=== PATIENT | female | born 1955 | race Caucasian/White ===

== ENCOUNTER 2017-09-04 08:25 | Day surgery (SDC) | payer BC ==
[~2017-09-04 08:25] MED LIST: Lactated Ringers 1,000 ML IV SCH; Lidocaine 2% 5 ML SDV ONE; Midazolam 1 MG/ML 2 ML SDV ONE; Propofol 200 MG/20 ML SDV ONE; Sodium Chloride 0.9% 10 ML Syringe FLUSH PRN; Sodium Chloride 0.9% 2.5 ML Syringe FLUSH PRN; fentaNYL 100 MCG/2 ML SDV ONE
--- NOTE | 2017-09-04 09:09 | PCM.PREANE ---
Preanesthetic Assessment - Anesthesia/Transfusion/Family Hx Anesthesia History: Prior Anesthesia Without Reaction Family History of Anesthesia Reaction: No Transfusion History: No Prior Transfusion(s) Intubation History: Unknown - Review of Systems General: No Symptoms Pulmonary: No Symptoms Cardiovascular: No Symptoms Gastrointestinal: No Symptoms Neurological: No Symptoms Other: Reports: None - Physical Assessment O2 Sat by Pulse Oximetry: 96 Respiratory Rate: 16 Vital Signs: Last Vital Signs Temp 36.6 C 09/04/17 08:42 Pulse 64 09/04/17 08:42 Resp 16 09/04/17 08:42 BP 135/94 H 09/04/17 08:42 Pulse Ox 96 09/04/17 08:42 Height: 1.73 m Weight: 71.668 kg ASA Class: 1 Mental Status: Alert & Oriented x3 Airway Class: Mallampati = 3 Dentition: Reports: Normal Dentition Thyro-Mental Finger Breadths: 3 Mouth Opening Finger Breadths: 3 ROM/Head Extension: Full Lungs: Clear to Auscultation, Normal Respiratory Effort Cardiovascular: Regular Rate, Regular Rhythm - Allergies Allergies/Adverse Reactions: Allergies Allergy/AdvReac Type Severity Reaction Status Date / Time No Known Allergies Allergy Verified 08/30/17 14:48 - Blood Blood Available: No - Anesthesia Plan Pre-Op Medication Ordered: None - Acknowledgements Anesthesia Type Planned: MAC Pt an Appropriate Candidate for the Planned Anesthesia: Yes Alternatives and Risks of Anesthesia Discussed w Pt/Guardian: Yes Pt/Guardian Understands and Agrees with Anesthesia Plan: Yes PreAnesthesia Questionnaire HEENT History: Reports: Other (See Below) Other HEENT History: wears glasses/contacts Gastrointestinal History: Reports: None Genitourinary History: Reports: None [employer] History: Reports: Fibroids, - Past Surgical History Head Surgeries/Procedures: Reports: None GI Surgical History: Reports: Appendectomy Female Surgical History: Reports: Breast Biopsy - SUBSTANCE USE Smoking Status *Q: Former Smoker Recreational Drug Use History: No - HOME MEDS Home Medications: Home Meds Multivitamin [Multivitamins] 1 tab PO DAILY 08/30/17 [History] - CURRENT (IN HOUSE) MEDS Current Meds: Current Medications Lactated Ringer's (Ringers, Lactated) 1,000 mls @ 125 mls/hr IV ASDIRECTED PAMELA Sodium Chloride (Saline Flush) 10 ml FLUSH ASDIRECTED PRN PRN Reason: Keep Vein Open Sodium Chloride (Saline Flush) 2.5 ml FLUSH ASDIRECTED PRN PRN Reason: Keep Vein Open Discontinued Medications Fentanyl (Sublimaze) Confirm Administered Dose 100 mcg .ROUTE .STK-MED ONE Stop: 09/04/17 07:20 Lidocaine (Xylocaine-Mpf 2%) Confirm Administered Dose 5 ml .ROUTE .STK-MED ONE Stop: 09/04/17 07:20 Midazolam HCl (Versed 1 Mg/Ml) Confirm Administered Dose 2 mg .ROUTE .STK-MED ONE Stop: 09/04/17 07:21 Propofol (Diprivan 20 Ml) Confirm Administered Dose 400 mg .ROUTE .STK-MED ONE Stop: 09/04/17 07:20
[2017-09-04] MEDS ORDERED: Ketorolac 30 MG/ML SDV ONE (10:23)
[2017-09-04] MEDS ORDERED: Acetaminophen/oxyCODONE 325-5 MG Tab PO PRN (10:39)
--- NOTE | 2017-09-04 10:42 | PCM.OPNOTE ---
- General Post-Op/Procedure Note Date of Surgery/Procedure: 09/04/17 Operative Procedure(s): Loop electrosurgical excision procedure Pre Op Diagnosis: Moderate cervical dysplasia Post-Op Diagnosis: Same Anesthesia Technique: MAC Primary Surgeon: Gloria Ramirez Fluid Replacement, Intraop: 1,000 EBL in mLs: 3 Complications: None Condition: Good
[2017-09-04] MEDS ORDERED: Lactated Ringers 1,000 ML IV SCH (10:45)
[2017-09-04] MEDS ORDERED: Dexamethasone 4 MG/ML 5 ML MDV ONE (11:15)
[2017-09-04] MEDS ORDERED: diphenhydrAMINE 50 MG/ML SDV ONE (11:15)
--- NOTE | 2017-09-04 11:56 | OR ---
SURGEON: Gloria Ramirez MD DATE OF PROCEDURE: 09/04/2017 PREOPERATIVE DIAGNOSIS: Moderate cervical dysplasia (cervical intraepithelial neoplasia 2). POSTOPERATIVE DIAGNOSIS: Moderate cervical dysplasia (cervical intraepithelial neoplasia 2). PROCEDURE: Loop electrosurgical excision procedure. ANESTHESIA: MAC. ESTIMATED BLOOD LOSS: Less than 5 mL. COMPLICATIONS: None. BRIEF HISTORY: The patient is a 62-year-old post menopausal lady who was evaluated in the office for an abnormal Pap smear, ASCUS with positive high-risk HPV. Colposcopy - directed biopsies were consistent with PINKY 2. These findings including management options were discussed with the patient and she consented to proceed with operative procedure in the form of a LEEP. The risks of this procedure were explained to her in detail including, but not limited to infection, bleeding, inability to excise the lesion completely, which might lead to further procedures and injury to adjacent structures. Understanding these risks, she accepted to proceed with the surgery. Appropriate consent was obtained. DESCRIPTION OF PROCEDURE: The patient was taken to the operating room. Induction of anesthesia was performed and found to be adequate. After suitable level of anesthesia, she was then placed in dorsal lithotomy position, prepped and draped in the usual fashion for vaginal LEEP procedure. A time-out was held. Examination under anesthesia revealed a small, mobile, anteverted uterus. No palpable adnexal masses. The cervix was atrophic in appearance. No parametrial or paracervical nodularities were palpated. A bivalve-coated speculum was then placed in the vagina with good visualization of the cervix obtained. The vagina was then cleaned out. Paracervical block was performed with 1% lidocaine with epinephrine in a 1:100,000 dilution. Thereafter, using the loop size of 20 x 15 mm, standard LEEP procedure was performed. The cervical specimen was removed in 2 pieces and tagged at 12 o'clock and 9 o'clock. Endocervical curetting was then performed and sample was collected with Cytobrush. Hemostasis was achieved with cautery ball. The instruments were removed from the patient's vagina. Instrument, sponge counts, and needle counts were correct at the end of the procedure. The patient tolerated the procedure well, was taken to the recovery room in a stable condition. MARJORIEUMVIV / PHILL /[id number] MYRNA
== END 2017-09-04 11:19 | disposition home or self-care (01) ==
LOC: MW.SDS 08:25
PROVIDERS: ATTEND Obstetrics & Gynecology
DX: N87.0 Mild cervical dysplasia (principal); Z87.891 Personal history of nicotine dependence
CPT/HCPCS: 36415; 57522; 85027; J1885; J2250; J3010; 88304; 88307; J1100; J1200; J2704